=== PATIENT | male | born 1965 | race Caucasian/White ===

== ENCOUNTER → 2017-12-27 09:44 | Outpatient (CLI) | payer OTHER, SELFPAY ==
[2017-12-27 09:59] LABS: Add Manual Diff / Slide Review NO; Basophils Percent Auto 1.4 % (0-2); Eosinophils Percent Auto 2.5 % (2-4); Hematocrit 42.3 % (41-53); Hemoglobin 14.9 g/dL (13.5-17.5); Lymphocytes Percent Auto 24.9 % (25-40); Mean Corpuscular HGB Conc 35.1 % (30-36); Mean Corpuscular Hemoglobin 36.5 PG (26-34); Mean Corpuscular Volume 103.9 fL (80-100); Neutrophils Absolute Auto 1500 /uL (3000-5900); Neutrophils Percent Auto 57.2 % (50-75); Platelet Count 132 X10^3/uL (150-400); Red Blood Cell Count 4.07 X10^6/uL (4.5-5.9); Red Cell Distribution Width 13.6 % (11.6-14.8); White Blood Cell Count 2.6 X10^3/uL (4.5-11.0)
[2017-12-27 10:13] LABS: Alanine Aminotransferase 34 IU/L (21-72); Albumin 4.5 g/dL (3.5-5.0); Albumin Globulin Ratio 1.6 (1.0-2.8); Alkaline Phosphatase 76 U/L (38-126); Aspartate Aminotransferase 26 IU/L (17-59); BUN Creatinine Ratio 22.5 (6-22); Bilirubin Total 0.7 mg/dL (0.2-1.3); Calcium 9.4 mg/dL (8.4-10.2); Estimated Glomerular Filt Rate > 60.0 mL/min (>60); Globulin 2.8 g/dL (1.7-4.1); Glucose 93 mg/dL (70-100); HEMOLYSIS 16 (0-50); Potassium 4.6 mmol/L (3.4-5.1); Sodium 139 mmol/L (137-145); Total Protein 7.3 g/dL (6.3-8.2)
== END ==
PROVIDERS: PCP Family Medicine; Visit Provider Nurse Practitioner Gerontology
DX: C90.00 Multiple myeloma not having achieved remission (principal)
CPT/HCPCS: 36415; 80053; 85025

== ENCOUNTER → 2018-01-29 09:39 | Outpatient (CLI) | payer OTHER, SELFPAY ==
[2018-01-29 10:08] LABS: Add Manual Diff / Slide Review NO; Basophils Percent Auto 1.2 % (0-2); Eosinophils Percent Auto 3.4 % (2-4); Hematocrit 41.3 % (41-53); Hemoglobin 14.7 g/dL (13.5-17.5); Lymphocytes Percent Auto 29.9 % (25-40); Mean Corpuscular HGB Conc 35.6 % (30-36); Mean Corpuscular Hemoglobin 36.8 PG (26-34); Mean Corpuscular Volume 103.2 fL (80-100); Monocytes Percent Auto 10.1 % (3-14); Neutrophils Absolute Auto 1300 /uL (3000-5900); Neutrophils Percent Auto 55.4 % (50-75); Platelet Count 124 X10^3/uL (150-400); Red Cell Distribution Width 12.8 % (11.6-14.8); White Blood Cell Count 2.4 X10^3/uL (4.5-11.0)
[2018-01-29 10:19] LABS: Alanine Aminotransferase 37 IU/L (21-72); Albumin 4.4 g/dL (3.5-5.0); Albumin Globulin Ratio 1.5 (1.0-2.8); Alkaline Phosphatase 59 U/L (38-126); Aspartate Aminotransferase 27 IU/L (17-59); BUN Creatinine Ratio 23.3 (6-22); Bilirubin Total 1.1 mg/dL (0.2-1.3); Blood Urea Nitrogen 21 mg/dL (9-20); Carbon Dioxide 27 mmol/L (22-32); Chloride 102 mmol/L (98-107); Estimated Glomerular Filt Rate > 60.0 mL/min (>60); Globulin 2.9 g/dL (1.7-4.1); Glucose 82 mg/dL (70-100); HEMOLYSIS < 15 (0-50); Potassium 4.4 mmol/L (3.4-5.1); Sodium 139 mmol/L (137-145); Total Protein 7.3 g/dL (6.3-8.2)
== END ==
PROVIDERS: PCP Family Medicine; Visit Provider Nurse Practitioner Gerontology
DX: C90.00 Multiple myeloma not having achieved remission (principal)
CPT/HCPCS: 36415; 80053; 85025

== ENCOUNTER → 2018-02-14 10:12 | Outpatient (CLI) | payer OTHER, SELFPAY ==
[2018-02-14 10:43] LABS: Hematocrit 41.4 % (41-53); Hemoglobin 14.5 g/dL (13.5-17.5); Mean Corpuscular Hemoglobin 36.3 PG (26-34); Mean Corpuscular Volume 103.9 fL (80-100); Platelet Count 114 X10^3/uL (150-400); Red Blood Cell Count 3.98 X10^6/uL (4.5-5.9); Red Cell Distribution Width 12.6 % (11.6-14.8)
[2018-02-14 10:50] LABS: Alanine Aminotransferase 33 IU/L (21-72); Albumin 4.2 g/dL (3.5-5.0); Albumin Globulin Ratio 1.4 (1.0-2.8); Alkaline Phosphatase 50 U/L (38-126); Aspartate Aminotransferase 26 IU/L (17-59); BUN Creatinine Ratio 16.7 (6-22); Bilirubin Total 0.7 mg/dL (0.2-1.3); Blood Urea Nitrogen 15 mg/dL (9-20); Calcium 8.8 mg/dL (8.4-10.2); Carbon Dioxide 22 mmol/L (22-32); Chloride 107 mmol/L (98-107); Estimated Glomerular Filt Rate > 60.0 mL/min (>60); Globulin 2.9 g/dL (1.7-4.1); Glucose 88 mg/dL (70-100); HEMOLYSIS < 15 (0-50); Potassium 4.2 mmol/L (3.4-5.1); Sodium 142 mmol/L (137-145); Total Protein 7.1 g/dL (6.3-8.2); White Blood Cell Count 1.9 X10^3/uL (4.5-11.0)
[2018-02-14 10:51] LABS: Add Manual Diff / Slide Review YES
[2018-02-14 11:19] LABS: Neutrophils Absolute Manual 874 /uL (3000-5900); Total Cells Counted 50
[2018-02-14 11:20] LABS: Macrocytosis 1+
--- NOTE | 2018-02-14 17:03 | PC.NURSE ---
WBC 1.9 ANC 800's.Pt ended revlamid cycle on Sunday and is due to restart next Sunday.Is going out of town for 2 weeks on Sunday.Tatianna aware and will review and detemine plan for pt .Told him we would call today or tomm.Reviewed neutropenic precautions
--- NOTE | 2018-02-15 12:00 | PC.NURSE ---
Addendum entered by Prabha Cano R.N. 03/01/18 12:00: Pt called today to report that he is back from [place], sooner than expected and states that he has an appt with Tatianna on 03/11 with labs and to discuss restarting Revlimid. His Revlimid has been on hold due to neutropenia. Note placed in Tatianna's box asking if we can check labs earlier and possibly restart Revlimid if he is no longer neutropenic. Awaiting return response. Original Note: Spoke with Ranjit regarding his ANC 874. Tatianna reviewed the results and would like pt to hold his Revlimid until he returns from vacation. Upon return from [facility], she would like him to return for a cbc. He is unsure of the exact date of his return; states he is going there to look for an apartment so as soon as that happens, he'll be heading back this way. He states he will call and make that lab appt right when he gets back. We discussed neutropenic precautions including good hand washing and avoiding large crowds and sick people.
[2018-02-15 18:12] LABS: Free Kappa Light Chain 10.1 mg/L (3.3-19.4); Free Kappa/ Lambda Ratio 1.65 (0.26-1.65); Free Lambda 6.1 mg/L (5.7-26.3)
[2018-02-18 15:54] LABS: Abnormal Protein Band 1 0.6 g/dL (NONE DETECTED); Albumin 4.1 g/dL (3.8-4.8); Alpha 1 Globulin 0.2 g/dL (0.2-0.3); Alpha 2 Globulin 0.5 g/dL (0.5-0.9); Beta 1 Globulin 0.4 g/dL (0.4-0.6); Protein, Total 6.5 g/dL (6.1-8.1)
== END ==
PROVIDERS: PCP Family Medicine; Visit Provider Nurse Practitioner Gerontology
DX: C90.00 Multiple myeloma not having achieved remission (principal)
CPT/HCPCS: 36415; 80053; 83883; 84155; 84165; 85025

== ENCOUNTER → 2018-03-07 14:58 | Outpatient (CLI) | payer OTHER, SELFPAY ==
[2018-03-07 15:12] LABS: Add Manual Diff / Slide Review NO; Basophils Percent Auto 0.6 % (0-2); Eosinophils Percent Auto 1.1 % (2-4); Hematocrit 42.3 % (41-53); Hemoglobin 14.9 g/dL (13.5-17.5); Mean Corpuscular HGB Conc 35.3 % (30-36); Mean Corpuscular Hemoglobin 36.6 PG (26-34); Mean Corpuscular Volume 103.7 fL (80-100); Monocytes Percent Auto 9.3 % (3-14); Neutrophils Absolute Auto 2300 /uL (3000-5900); Platelet Count 131 X10^3/uL (150-400); Red Blood Cell Count 4.08 X10^6/uL (4.5-5.9); Red Cell Distribution Width 12.7 % (11.6-14.8); White Blood Cell Count 3.3 X10^3/uL (4.5-11.0)
--- NOTE | 2018-03-07 15:35 | PC.NURSE ---
This is a Pt on revilimid with cycle ending aroung 02/14. Past notes show he was concerned about his lab values and a planned a trip out of town. On 02/14 his WBC's showed 1.9 ANC 874. He was advised at that time to initiate neutropenic precautions. He is here today for follow up labs with a WBC of 3.3 ANC 2300 and a stable H/H. He is currently scheduled to see TRACKWALKER on 03/11 for f/u and review of current labs.
== END ==
PROVIDERS: PCP Family Medicine; Visit Provider Nurse Practitioner Gerontology
DX: C90.00 Multiple myeloma not having achieved remission (principal)
CPT/HCPCS: 36415; 85025

== ENCOUNTER → 2018-04-01 15:18 | Outpatient (CLI) | payer OTHER, SELFPAY ==
[2018-04-01 15:42] LABS: Add Manual Diff / Slide Review NO; Basophils Percent Auto 0.8 % (0-2); Eosinophils Percent Auto 0.8 % (2-4); Hematocrit 39.1 % (41-53); Hemoglobin 13.9 g/dL (13.5-17.5); Lymphocytes Percent Auto 19.4 % (25-40); Mean Corpuscular HGB Conc 35.5 % (30-36); Mean Corpuscular Volume 104.1 fL (80-100); Monocytes Percent Auto 10.4 % (3-14); Neutrophils Absolute Auto 2500 /uL (3000-5900); Neutrophils Percent Auto 68.6 % (50-75); Platelet Count 122 X10^3/uL (150-400); Red Blood Cell Count 3.75 X10^6/uL (4.5-5.9); Red Cell Distribution Width 12.6 % (11.6-14.8); White Blood Cell Count 3.6 X10^3/uL (4.5-11.0)
[2018-04-01 15:45] LABS: Alanine Aminotransferase 35 IU/L (21-72); Albumin 4.3 g/dL (3.5-5.0); Albumin Globulin Ratio 1.7 (1.0-2.8); Alkaline Phosphatase 65 U/L (38-126); Aspartate Aminotransferase 39 IU/L (17-59); Bilirubin Total 0.7 mg/dL (0.2-1.3); Blood Urea Nitrogen 20 mg/dL (9-20); Calcium 9.4 mg/dL (8.4-10.2); Carbon Dioxide 26 mmol/L (22-32); Chloride 104 mmol/L (98-107); Estimated Glomerular Filt Rate > 60.0 mL/min (>60); Globulin 2.6 g/dL (1.7-4.1); Glucose 110 mg/dL (70-100); HEMOLYSIS < 15 (0-50); Sodium 139 mmol/L (137-145); Total Protein 6.9 g/dL (6.3-8.2)
== END ==
PROVIDERS: PCP Family Medicine; Visit Provider Nurse Practitioner Gerontology
DX: C90.00 Multiple myeloma not having achieved remission (principal)
CPT/HCPCS: 36415; 80053; 85025

== ENCOUNTER → 2018-04-30 15:42 | Outpatient (CLI) | payer OTHER, SELFPAY ==
[2018-04-30 16:04] LABS: Add Manual Diff / Slide Review NO; Basophils Percent Auto 1.2 % (0-2); Eosinophils Percent Auto 2.9 % (2-4); Hematocrit 40.7 % (41-53); Hemoglobin 14.3 g/dL (13.5-17.5); Lymphocytes Percent Auto 21.6 % (25-40); Mean Corpuscular HGB Conc 35.1 % (30-36); Mean Corpuscular Hemoglobin 36.7 PG (26-34); Mean Corpuscular Volume 104.6 fL (80-100); Monocytes Percent Auto 14.2 % (3-14); Neutrophils Absolute Auto 2300 /uL (3000-5900); Neutrophils Percent Auto 60.1 % (50-75); Platelet Count 140 X10^3/uL (150-400); Red Blood Cell Count 3.89 X10^6/uL (4.5-5.9); Red Cell Distribution Width 12.2 % (11.6-14.8); White Blood Cell Count 3.8 X10^3/uL (4.5-11.0)
[2018-04-30 16:16] LABS: Alanine Aminotransferase 34 IU/L (21-72); Albumin 4.3 g/dL (3.5-5.0); Albumin Globulin Ratio 1.5 (1.0-2.8); Alkaline Phosphatase 63 U/L (38-126); Aspartate Aminotransferase 30 IU/L (17-59); Bilirubin Total 0.8 mg/dL (0.2-1.3); Blood Urea Nitrogen 18 mg/dL (9-20); Calcium 9.2 mg/dL (8.4-10.2); Carbon Dioxide 25 mmol/L (22-32); Chloride 105 mmol/L (98-107); Estimated Glomerular Filt Rate > 60.0 mL/min (>60); Globulin 2.9 g/dL (1.7-4.1); Glucose 102 mg/dL (70-100); HEMOLYSIS < 15 (0-50); Potassium 4.1 mmol/L (3.4-5.1); Sodium 139 mmol/L (137-145); Total Protein 7.2 g/dL (6.3-8.2)
== END ==
PROVIDERS: PCP Family Medicine; Visit Provider Nurse Practitioner Gerontology
DX: C90.00 Multiple myeloma not having achieved remission (principal)
CPT/HCPCS: 36415; 80053; 85025

== ENCOUNTER 2018-06-13 10:30 | Oncology outpatient (ONC) | payer OTHER, SELFPAY ==
[2018-03-11 11:23] VITALS: BP 128/78; PULSE 69; RESP 18; O2SAT 98
--- NOTE | 2018-03-11 11:58 | P.PNONC_ITS ---
Assessment and Plan (1) Multiple myeloma Current visit: No Status: Acute 03/11/18 12:07 The patient is a 53 year old Male who is being seen in the clinic 03/11/2018 for ongoing management of multiple myeloma more than 6 years after autologous stem cell transplant. he was also treated previously for hairy cell leukemia. Ranjit has been on revilimid for the last few years and reports he has been very stable. As detailed above Revlimid was held due to white count of 1.9 neutrophils 874. Labs today are improved with a CBC demonstrating WBC 3.3 ANC 2300. Hemoglobin 14.9 hematocrit 42.3 platelets [id number]. February 14, 2018 SPEP and free light chains all within normal limits. CMP unremarkable. Resume Revlimid at 5 mg once daily days 1 through 21 of a 28 day cycle. Continue monthly CBC and CMP. Every three-month provider visit with CBC CMP free light chains SPEP. His next visit I would like for him to establish with 1 of the new oncologist. - Time Spent with Patient 30 mins PN -Subjective Interval history: The patient is a 53 year old Male who is being seen in the clinic 03/11/2018 for ongoing management of multiple myeloma more than 6 years after autologous stem cell transplant. he was also treated previously for hairy cell leukemia. Ranjit has been on revilimid for the last few years and reports he has been very stable. Please see Dr La extensive and detailed note 09/03/2017. Ranjit has been followed at [facility] for the last several years now due to change in insurance has transferred care to [facility]. Most recently Ranjit had low WBC we subsequently held his Revlimid. Specifically February 14, 2018 WBC 1.9 with manual neutrophils 874. Thus Revlimid has been on hold since February 14. Patient has no new complaints today. Overall feeling very well, exercising regularly on his bike. No cough, fever, chills. No recent illnesses or infections. No change with activity tolerance. No night sweats. No change with appetite, weight is stable. No abdominal bloating. No early satiety. No new lumps or bumps. No new musculoskeletal pain. No change with bowel or bladder habits. PMH: This is a 55-year-old man who provides the following history. He states that he had colitis for approximately 4 years that at age 42 [address] Muhammad and Veda who then sent him to Dr. Oliver in [place], GI specialist, who did blood tests and found him to be severely anemic. Patient was surprised because he was quite physically active that time. He went to see Dr. 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 Patient states that he had 90% malignant cells in his bone marrow but is not sure about how that related to the 2 malignancies except that was but is being most important to treat hairy cell leukemia. He was treated with 5 days of cladribine and appeared cured by June 2007. He states that myeloma was discussed diagnosed in 2007 was watched for approximately a year; then he was treated with cyclophosphamide and bortezomib and dexamethasone and the M spike was brought down to 1.5 from a higher value (that value he is not sure of). He underwent autologous stem cell transplant after high-dose treatment and since then he has been in a very good partial remission with a low M spike in the 0.2- 0.4 range[address] Dr. Homero Almonte at [facility] but the patient's insurance, [employer], now requires sthat he see another oncologist who is within the network. In addition the patient lives in [place] and prefers to be seen here. I did inform them that there was oncology program in [place] in [facility] as well. This is the same group that Dr. Garcia was a member. Dr. Almonte provides following history. He was previously treated with a 5 day single cycle of cladribine therapy completed in July 2008 and has not had recurrence of hairy cell leukemia. He was diagnosed with multiple myeloma ISS stage I the time of diagnosis. He was treated with high-dose melphalan conditioning and autologous stem cell transplant 05/10/2011. He has been on maintenance lenalidomide; 3 on 10 mg for 21 days out of 28 days but due to low white cells he has been on 5 mg. Having his CBC checked every month. According to Dr. Almonte, his M spike was stable at 0.3 g or deciliter for just under a year and for the past 9 months has been 0.4 g/dL. He has been considered stable and appropriate for follow-up without changing maintenance therapy. Patient had been on Zometa as well but had been on this for approximately 5 years and is considered appropriate to stop therapy on the last visit in July 2017. The patient has never had hypercalcemia and renal failure or bone pain but has had anemia. Included in the packet for the following laboratory tests and imaging: MRI bone marrow 20-7 per 2010 showing small hemangioma and S1 vertebral body but resolution of many discrete lesions seen previously with high STIR and low T1 signal. CT abdomen 04/27/2012 showing no recurrence of leukemia or myeloma hypodense lesion in segment 2 of the liver increased from 513 mm but no enhancement, borderline splenomegaly, 2 indeterminate new lung nodules benign in appearance. You DEXA axial skeleton 12/13/2012 showing no significant osteopenia or osteoporosis with an increase in BMD over the past 3 years. Osseous survey 08/09/2017 showing no focal bony lesions Bone marrow examination, 05/17/2012 slightly hypocellular but no evidence of B- cell lymphoma. Bone marrow aspirate 05/17/2012 showing a very small abnormal plasma cell population Bone marrow cytogenetics normal, 05/17/2012 Laboratory values,, see below. Home Medications and Allergies Home Medications Medication Instructions Recorded Confirmed Type cholestyramine (with sugar) 4 gm PO #0 08/11/17 History lisinopril 20 mg PO QDAY #0 08/11/17 History VITAMIN D (Vitamin D3) 1,000 unit PO QDAY #0 09/03/17 History lenalidomide [Revlimid] 5 mg PO QDAY #21 cap 09/03/17 Rx Allergies Allergy/AdvReac Type Severity Reaction Status Date / Time ciprofloxacin [CIPROFLOXACIN] Allergy Unknown Unverified 12/05/17 11:56 diphenhydramine Allergy Unknown Unverified 12/05/17 11:56 [From BENADRYL] fluconazole [FLUCONAZOLE] Allergy Unknown Unverified 12/05/17 11:56 Sulfa (Sulfonamide Allergy Unknown Unverified 12/05/17 11:56 Antibiotics) [SULFA (SULFONAMIDE ANTIBIOTICS)] ceftriaxone [CEFTRIAXONE] AdvReac Unknown Unverified 12/05/17 11:56 promethazine [PROMETHAZINE] AdvReac Unknown Unverified 12/05/17 11:56 Exam Vital signs: Last Vital Signs Pulse 69 03/11/18 11:23 Resp 18 03/11/18 11:23 BP 128/78 H 03/11/18 11:23 Pulse Ox 98 07/16/18 11:23 Narrative: well appearing - Constitutional positive no acute distress, positive average body habitus - Routine HEENT Exam Eye: Present: conjunctivae pink. Absent: conjunctival icterus, scleral injection ENT: Present: mucous membranes moist, oropharynx clear - Routine Neck Exam Present: supple. Absent: lymphadenopathy - Routine Respiratory Exam Present: Clear to auscultation bilaterally - Routine Cardiovascular Exam Present: RRR, S1, S2. Absent: JVD - Routine Abdominal Exam Present: soft, normoactive bowel sounds. Absent: tenderness, distended, organomegaly - Routine Extremities Exam Absent: edema, calf tenderness - Routine Skin Exam Present: intact, normal turgor. Absent: petechiae - Routine Neurological Exam Present: alert, oriented X3 - Routine Psychiatric Exam Present: normal affect
[2018-06-05 15:44] LABS: Add Manual Diff / Slide Review NO; Basophils Percent Auto 0.9 % (0-2); Eosinophils Percent Auto 2.5 % (2-4); Hemoglobin 14.4 g/dL (13.5-17.5); Lymphocytes Percent Auto 30.3 % (25-40); Mean Corpuscular HGB Conc 34.4 % (30-36); Mean Corpuscular Hemoglobin 35.9 PG (26-34); Mean Corpuscular Volume 104.2 fL (80-100); Monocytes Percent Auto 11.7 % (3-14); Neutrophils Absolute Auto 1400 /uL (3000-5900); Neutrophils Percent Auto 54.6 % (50-75); Platelet Count 121 X10^3/uL (150-400); Red Blood Cell Count 4.03 X10^6/uL (4.5-5.9); Red Cell Distribution Width 12.4 % (11.6-14.8); White Blood Cell Count 2.6 X10^3/uL (4.5-11.0)
[2018-06-05 16:53] LABS: Alanine Aminotransferase 36 IU/L (21-72); Albumin 4.3 g/dL (3.5-5.0); Albumin Globulin Ratio 1.4 (1.0-2.8); Alkaline Phosphatase 55 U/L (38-126); Aspartate Aminotransferase 29 IU/L (17-59); BUN Creatinine Ratio 22.5 (6-22); Bilirubin Total 0.9 mg/dL (0.2-1.3); Blood Urea Nitrogen 18 mg/dL (9-20); Carbon Dioxide 24 mmol/L (22-32); Chloride 105 mmol/L (98-107); Estimated Glomerular Filt Rate > 60.0 mL/min (>60); Globulin 3.1 g/dL (1.7-4.1); Glucose 89 mg/dL (70-100); HEMOLYSIS < 15 (0-50); Potassium 3.9 mmol/L (3.4-5.1); Sodium 139 mmol/L (137-145); Total Protein 7.4 g/dL (6.3-8.2)
[2018-06-07 15:03] LABS: Free Kappa Light Chain 13.1 mg/L (3.3-19.4); Free Lambda 8.2 mg/L (5.7-26.3)
[2018-06-08 15:52] LABS: Abnormal Protein Band 1 0.6 g/dL (NONE DETECTED); Albumin 4.2 g/dL (3.8-4.8); Alpha 1 Globulin 0.3 g/dL (0.2-0.3); Alpha 2 Globulin 0.5 g/dL (0.5-0.9); Beta 1 Globulin 0.4 g/dL (0.4-0.6); Gamma Globulin 1.2 g/dL (0.8-1.7); Protein, Total 6.9 g/dL (6.1-8.1)
[2018-06-13 10:50] VITALS: BP 139/90; PULSE 55; RESP 18; TEMP 36.2; O2SAT 100
--- NOTE | 2018-06-13 11:01 | P.PNONC_ITS ---
PN -Subjective Interval history: Chief complaint 53-year-old gentleman with IgG kappa multiple myeloma and hairy cell leukemia Oncological history He states that he had colitis for approximately 4 years that at age 42 [address] Muhammad and Veda who then sent him to Dr. Oliver in [place], GI specialist, who did blood tests and found him to be severely anemic. Patient was surprised because he was quite physically active that time. He went to see Dr. 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 Patient states that he had 90% malignant cells in his bone marrow but is not sure about how that related to the 2 malignancies except that was but is being most important to treat hairy cell leukemia. He was treated with 5 days of cladribine and appeared cured by June 2007. He states that myeloma was discussed diagnosed in 2007 was watched for approximately a year; then he was treated with cyclophosphamide and bortezomib and dexamethasone and the M spike was brought down to 1.5 from a higher value (that value he is not sure of). He underwent autologous stem cell transplant after high-dose treatment and since then he has been in a very good partial remission with a low M spike in the 0.2- 0.[address]. [address] Dr. Homero Almonte at [facility] but the patient's insurance, [employer], now requires sthat he see another oncologist who is within the network. In addition the patient lives in [place] and prefers to be seen here. I did inform them that there was oncology program in [place] in [facility] as well. This is the same group that Dr. Garcia was a member. Dr. Almonte provides following history. He was previously treated with a 5 day single cycle of cladribine therapy completed in July 2008 and has not had recurrence of hairy cell leukemia. He was diagnosed with multiple myeloma ISS stage I the time of diagnosis. He was treated with high-dose melphalan conditioning and autologous stem cell transplant 05/10/2011. He has been on maintenance lenalidomide; 3 on 10 mg for 21 days out of 28 days but due to low white cells he has been on 5 mg. Having his CBC checked every month. According to Dr. Almonte, his M spike was stable at 0.3 g or deciliter for just under a year and for the past 9 months has been 0.4 g/dL. He has been considered stable and appropriate for follow-up without changing maintenance therapy. Patient had been on Zometa as well but had been on this for approximately 5 years and is considered appropriate to stop therapy on the last visit in July 2017. The patient has never had hypercalcemia and renal failure or bone pain but has had anemia. Included in the packet for the following laboratory tests and imaging: MRI bone marrow 20-7 per 2010 showing small hemangioma and S1 vertebral body but resolution of many discrete lesions seen previously with high STIR and low T1 signal. CT abdomen 04/27/2012 showing no recurrence of leukemia or myeloma hypodense lesion in segment 2 of the liver increased from 513 mm but no enhancement, borderline splenomegaly, 2 indeterminate new lung nodules benign in appearance. You DEXA axial skeleton 12/13/2012 showing no significant osteopenia or osteoporosis with an increase in BMD over the past 3 years. Osseous survey 08/09/2017 showing no focal bony lesions Bone marrow examination, 05/17/2012 slightly hypocellular but no evidence of B- cell lymphoma. Bone marrow aspirate 05/17/2012 showing a very small abnormal plasma cell population Bone marrow cytogenetics normal, 05/17/2012 Laboratory values,, see below. Interim events Patient clinically has reported no new complaints. Patient reports good energy good appetite. No musculoskeletal pain. No fever and no chills. Patient is taking Revlimid it faithfully 5 mg once a day 3 weeks on and 1 week off. - Additional ROS All systems PM: reviewed and no additional remarkable complaints except as stated Home Medications and Allergies Home Medications Medication Instructions Recorded Confirmed Type cholestyramine (with sugar) 4 gm PO BID #0 08/11/17 History lisinopril 20 mg PO QDAY #0 08/11/17 History VITAMIN D (Vitamin D3) 1,000 unit PO QDAY #0 09/03/17 History lenalidomide [Revlimid] 5 mg PO QDAY #21 cap 09/03/17 Rx Allergies Allergy/AdvReac Type Severity Reaction Status Date / Time ciprofloxacin [CIPROFLOXACIN] Allergy Unknown Unverified 12/05/17 11:56 diphenhydramine Allergy Unknown Unverified 12/05/17 11:56 [From BENADRYL] fluconazole [FLUCONAZOLE] Allergy Unknown Unverified 12/05/17 11:56 Sulfa (Sulfonamide Allergy Unknown Unverified 12/05/17 11:56 Antibiotics) [SULFA (SULFONAMIDE ANTIBIOTICS)] ceftriaxone [CEFTRIAXONE] AdvReac Unknown Unverified 12/05/17 11:56 promethazine [PROMETHAZINE] AdvReac Unknown Unverified 12/05/17 11:56 Exam Vital signs: 3 Temp 97.2 F L 06/13/18 10:50 Pulse 55 L 06/13/18 10:50 Resp 18 06/13/18 10:50 BP 139/90 06/13/18 10:50 Pulse Ox 100 06/13/18 10:50 ECOG 1 Narrative: Constitutional: Well developed, well nourished, not in any acute respiratory distress, average body habitus, well groomed, pleasant and cooperative. HEENT: Normocephalic atraumatic. Extraocular muscle movement intact. Pupils are round, equal and reactive to light and accommodations. Anicteric sclera. No hearing difficulty; Oral mucus membrane moist and without ulcers. Neck: Supple, symmetrical, and tracheal midline; No palpable thyromegaly and no palpable lymph nodes. Respiratory: No use of accessory muscles. Clear to auscultation, and no wheezes or rales or rubs. Cardiovascular: Regular rate and rhythm, S1 and S2 normal, no murmurs gallops or rubs. No JVD. No pitting edema of lower extremities. Abdomen: Soft, nontender, non-distended, bowel sounds normal, no palpable organomegaly, no hernia, no palpable masses. Lower extremities: No palpable pedal edema. Lymphatic: no palpable lymph nodes in the neck, axillae, or groins. Musculoskeletal: normal gait and station, no clubbing, no cyanosis, no pitting edema. Skin: no rashes, no ulcers, no petechiae Neurological: Awake and alert and oriented x3. CN II-XII grossly intact. No focal motor or sensory deficit. Psychiatric: Good judgment, good insight, normal affect, normal thought process , cooperative, no depression, no anxiety. Results - Labs 3 WBC 2.6 X10^3/uL (4.5-11.0) L 06/05/18 15:00 RBC 4.03 X10^6/uL (4.5-5.9) L 06/05/18 15:00 Hgb 14.4 g/dL (13.5-17.5) 06/05/18 15:00 Hct 42.0 % (41-53) 06/05/18 15:00 MCV 104.2 fL (80-100) H 06/05/18 15:00 MCH 35.9 PG (26-34) H 06/05/18 15:00 MCHC 34.4 % (30-36) 06/05/18 15:00 RDW 12.4 % (11.6-14.8) 06/05/18 15:00 Plt Count 121 X10^3/uL (150-400) L 06/05/18 15:00 Neut % (Auto) 54.6 % (50-75) 06/05/18 15:00 Lymph % (Auto) 30.3 % (25-40) 06/05/18 15:00 Nolan % (Auto) 11.7 % (3-14) 06/05/18 15:00 Eos % (Auto) 2.5 % (2-4) 06/05/18 15:00 Baso % (Auto) 0.9 % (0-2) 06/05/18 15:00 Neut # (Auto) 1400 /uL (6742-0096) L 06/05/18 15:00 Sodium 139 mmol/L (137-145) 06/05/18 15:00 Potassium 3.9 mmol/L (3.4-5.1) 06/05/18 15:00 Chloride 105 mmol/L (98-107) 06/05/18 15:00 Carbon Dioxide 24 mmol/L (22-32) 06/05/18 15:00 BUN 18 mg/dL (9-20) 06/05/18 15:00 Creatinine 0.80 mg/dL (0.66-1.25) 06/05/18 15:00 Estimated GFR > 60.0 mL/min (>60) 06/05/18 15:00 BUN/Creatinine Ratio 22.5 (6-22) H 06/05/18 15:00 Glucose 89 mg/dL (70-100) 06/05/18 15:00 Calcium 9.0 mg/dL (8.4-10.2) 06/05/18 15:00 Total Bilirubin 0.9 mg/dL (0.2-1.3) 06/05/18 15:00 AST 29 IU/L (17-59) 06/05/18 15:00 ALT 36 IU/L (21-72) 06/05/18 15:00 Alkaline Phosphatase 55 U/L (38-126) 06/05/18 15:00 Serum Total Protein 6.9 g/dL (6.1-8.1) 06/05/18 15:00 Total Protein 7.4 g/dL (6.3-8.2) 06/05/18 15:00 Albumin 4.2 g/dL (3.8-4.8) 06/05/18 15:00 Globulin 3.1 g/dL (1.7-4.1) 06/05/18 15:00 Albumin/Globulin Ratio 1.4 (1.0-2.8) 06/05/18 15:00 Tzrvv-3-Dwbqgtubu 0.3 g/dL (0.2-0.3) 06/05/18 15:00 Qbbtu-7-Wdyvucqfj 0.5 g/dL (0.5-0.9) 06/05/18 15:00 Dygj-8-Nigbabli 0.4 g/dL (0.4-0.6) 06/05/18 15:00 Caiu-4-Uzvajgon 0.3 g/dL (0.2-0.5) 06/05/18 15:00 Gamma Globulins 1.2 g/dL (0.8-1.7) 06/05/18 15:00 Abnorm Protein Band 1 0.6 g/dL (NONE DETECTED) A 06/05/18 15:00 Abnorm Protein Band 2 Not Reportable 06/05/18 15:00 Abn Gamma Band 3 Serum Not Reportable 06/05/18 15:00 PEP Comment See note 06/05/18 15:00 SANDRA & SPEP Interp See note 06/05/18 15:00 Free [place] Light Chains 13.1 mg/L (3.3-19.4) 06/05/18 15:00 Free Lambda Light Chain 8.2 mg/L (5.7-26.3) 06/05/18 15:00 Free [place]/Lambda Ratio 1.60 (0.26-1.65) 06/05/18 15:00 Assessment and Plan (1) Multiple myeloma Onset Date: 2006 I reviewed the laboratory results with the patient including CBC, CMP and multiple myeloma panel. Patient has a slightly lower level of total white cell count that may be related to the use of the Revlimid. The ANC level is above 1.0. The patient clinically has tolerated the current treatment extremely well. He denies any new onset musculoskeletal pain. Patient has protein electrophoresis showed a abnormal protein band in the gamma region 0.6 in concentration. The immunofixation confirmed the presence of a faint IgG kappa band. The serum free light chains are completely normal and the ratio is also within the normal range. Compared to his previous lab results, the multiple myeloma markers are completely stable. I talked with the patient that I will continue current treatment without any changes. Today patient also asked about if it is okay to get a shingles vaccine, I talked with him that the new shingles vaccine are not live virus, and it would be fine for him to get the vaccines. Plan: Revlimid 5 mg once a day, 3 weeks on and 1 week off. Continue monthly lab checks including CBC and CMP. Return to clinic in 3 months, we will check CBC CMP and multiple myeloma panel. (2) Hairy cell leukemia Onset Date: 2006 Patient underwent treatment with Cladrabine in 2006. The slightly lower white blood cell count has been stable which most likely is due to Revlimid. I will continue active surveillance.
== END 2018-06-14 12:00 ==
PROVIDERS: PCP Family Medicine; Visit Provider Nurse Practitioner Gerontology
DX: C90.00 Multiple myeloma not having achieved remission (principal); C91.41 Hairy cell leukemia, in remission
CPT/HCPCS: 36415; 80053; 83883; 84155; 84165; 85025; 99214

== ENCOUNTER → 2021-08-01 14:11 | Outpatient (CLI) | payer OTHER, SELFPAY ==
[2021-08-01 14:39] LABS: Add Manual Diff / Slide Review NO; Basophils Absolute Auto 0 /uL (0-100); Eosinophils Absolute Auto 100 /uL (0-450); Eosinophils Percent Auto 2.4 % (2-4); Hemoglobin 13.6 g/dL (13.5-17.5); Lymphocytes Absolute Auto 600 /uL (1100-4500); Lymphocytes Percent Auto 26.6 % (25-40); Mean Corpuscular HGB Conc 34.9 % (30-36); Mean Corpuscular Hemoglobin 35.4 PG (26-34); Mean Corpuscular Volume 101.4 fL (80-100); Monocytes Absolute Auto 300 /uL (0-900); Neutrophils Absolute Auto 1300 /uL (1500-7000); Platelet Count 133 X10^3/uL (150-400); Red Blood Cell Count 3.84 X10^6/uL (4.5-5.9); Red Cell Distribution Width 12.4 % (11.6-14.8); White Blood Cell Count 2.2 X10^3/uL (4.5-11.0)
[2021-08-01 14:55] LABS: Alanine Aminotransferase 32 IU/L (<50); Albumin 4.4 g/dL (3.5-5.0); Albumin Globulin Ratio 1.5 (1.0-2.8); Alkaline Phosphatase 73 U/L (38-126); Aspartate Aminotransferase 30 IU/L (17-59); BUN Creatinine Ratio 18.8 (6-22); Bilirubin Total 0.8 mg/dL (0.2-1.3); Blood Urea Nitrogen 19 mg/dL (9-20); Calcium 9.5 mg/dL (8.4-10.2); Carbon Dioxide 27 mmol/L (22-32); Chloride 103 mmol/L (98-107); Estimated Glomerular Filt Rate > 60.0 mL/min (>60); Glucose 90 mg/dL (70-100); HEMOLYSIS < 15 (0-50); Lactate Dehydrogenase 421 U/L (313-618); Potassium 4.3 mmol/L (3.4-5.1); Sodium 138 mmol/L (137-145); Total Protein 7.4 g/dL (6.3-8.2)
[2021-08-02 15:43] LABS: Free Lambda Lt Chains,Serum 19.3 mg/L (5.7-26.3)
[2021-08-03 04:26] LABS: Beta-2-Microglobulin 1.2 mg/L (0.6-2.4)
[2021-08-03 14:13] LABS: Immunoglobulin A, Serum 205 mg/dL (90-386); Immunoglobulin G,Serum 1296 mg/dL (603-1613); Immunoglobulin M, Serum 48 mg/dL (20-172)
[2021-08-03 15:36] LABS: Alpha-1-Globulin 0.2 g/dL (0.0-0.4); Alpha-2-Globulin 0.6 g/dL (0.4-1.0); Gamma Globulin 1.4 g/dL (0.4-1.8); Globulin Total 3.1 g/dL (2.2-3.9); Protein, Total 7.1 g/dL (6.0-8.5)
== END ==
PROVIDERS: PCP Family Medicine; Referring Provider Internal Medicine Hematology & Oncology; Visit Provider Internal Medicine Hematology & Oncology
DX: C90.00 Multiple myeloma not having achieved remission (principal); C91.40 Hairy cell leukemia not having achieved remission
CPT/HCPCS: 36415; 80053; 82232; 82784; 83615; 83883; 84155; 84165; 85025; 86334

== ENCOUNTER 2022-12-28 09:09 | Day surgery (SDC) | payer OTHER, SELFPAY ==
[2022-12-28 09:47] VITALS: BP 147/86; PULSE 61; RESP 17; TEMP 36.2; O2SAT 98; BMI 27.1
--- NOTE | 2022-12-28 09:56 | PM.HP.1 ---
History of Present Illness History of Present Illness Date Patient Seen: 12/28/22 Time Patient Seen: 09:56 Chief complaint: SDC Narrative: Ranjit is a 49-year-old man who is here for colonoscopy. His last 1 was over 10 years ago in some polyps were removed. Underwent treatment for leukemia and myeloma since that time. He is now in remission. Meds Home Medications and Allergies Home Medications Medication Instructions Recorded Confirmed Type cholestyramine (with sugar) 4 gram 4 gm PO DAILY ##0 08/11/17 12/28/22 History powder for susp in a packet lisinopril 20 mg tablet 20 mg PO QDAY ##0 08/11/17 12/28/22 History cholecalciferol (vitamin D3) 125 125 mcg PO DAILY ##0 09/03/17 12/28/22 History mcg (5,000 unit) tablet (Vitamin D3) ascorbic acid (vitamin C) 500 mg 500 mg PO DAILY 08/14/22 12/28/22 History tablet (Vitamin C) vitamin P55-dkewuodja factor 110 1 cap DAILY 08/14/22 12/28/22 History mg-0.5 mg capsule lenalidomide 5 mg capsule 5 mg PO DAILY #21 caps 11/27/22 12/28/22 Rx ibuprofen 200 mg tablet mg 12/28/22 History Allergies Allergy/AdvReac Type Severity Reaction Status Date / Time ciprofloxacin [CIPROFLOXACIN] Allergy Unknown Verified 12/28/22 09:41 diphenhydramine Allergy Unknown Verified 12/28/22 09:41 [From BENADRYL] fluconazole [FLUCONAZOLE] Allergy Unknown Verified 12/28/22 09:41 Sulfa (Sulfonamide Allergy Unknown Verified 12/28/22 09:41 Antibiotics) [SULFA (SULFONAMIDE ANTIBIOTICS)] ceftriaxone [CEFTRIAXONE] AdvReac Unknown Verified 12/28/22 09:41 promethazine [PROMETHAZINE] AdvReac Unknown Verified 12/28/22 09:41 Exam Const General: No acute distress Assessment & Plan Assessment and plan (1) Colon cancer screening: Status: Acute Plan We reviewed the risks and benefits of colonoscopy for colon cancer screening and he would like to proceed.
[2022-12-28] MEDS: LACTATED RINGERS 1,000 ML 120 ML IV (10:00)
--- NOTE | 2022-12-28 12:10 | P.OP.COLON_ITS ---
Operative Date/Time/Diagnoses Date of procedure: 12/28/22 Time of procedure: 12:10 Pre-op diagnosis: Colon cancer screening Post-op diagnosis: same Procedure & Clinicians Study performed: Colonoscopy Same procedure as scheduled: Yes Surgeon: Óscar Ferrell Procedure Notes Procedure in detail: Surgeon: Óscar Ferrell MD Anesthesia: Marce Prasad [employer] MANAGER Procedure: The patient was brought to the endoscopy suite, placed in left lateral decubitus position. The patient was connected to monitoring devices. A time-out was performed. Sedation was administered. Once the patient was adequately sedated, a digital rectal exam was performed and was normal. The scope was then inserted and advanced to the cecum where the appendiceal orifice was identified and photographed. The scope was then slowly withdrawn over greater than 6 minutes. The mucosa was thoroughly inspected. No polyps were found. The scope was retroflexed in the rectum. No other abnormalities were seen. The scope was straightened and removed. The patient was awakened and brought to recovery. Scope withdrawal time: 9 minutes Sedation time: 20 minutes EBL: 0 Findings: Normal colon Post-procedure Recommendations: Colonoscopy in 10 years Disposition: PACU
[2022-12-28 12:13] VITALS: BP 117/79; PULSE 68; RESP 12; TEMP 36.5; O2SAT 97
[2022-12-28 12:20] VITALS: BP 129/89; PULSE 61; RESP 14; TEMP 36.6; O2SAT 97
[2022-12-28 12:31] VITALS: BP 138/91; PULSE 60; RESP 16; TEMP 36.6; O2SAT 99
[2022-12-28 12:41] VITALS: BP 143/87; PULSE 60; RESP 18; TEMP 36.3; O2SAT 99
== END 2022-12-28 12:59 | disposition home or self-care (01) ==
PROVIDERS: PCP Family Medicine; Referring Provider Surgery; Visit Provider Surgery
PROC: 0DJD8ZZ Inspection of Lower Intestinal Tract, Via Natural or Artificial Opening Endoscopic (ICD-10-PCS; CPT 45378; principal; 2022-12-28 10:15)
DX: Z12.11 Encounter for screening for malignant neoplasm of colon (principal)
CPT/HCPCS: 45378; J2704

== ENCOUNTER → 2023-01-30 09:02 | Outpatient (ROUT) | payer OTHER, SELFPAY ==
[2023-01-30 09:23] LABS: Add Manual Diff / Slide Review NO; Basophils Absolute Auto 0 /uL (0-100); Basophils Percent Auto 0.8 % (0-2); Eosinophils Absolute Auto 100 /uL (0-450); Eosinophils Percent Auto 3.2 % (2-4); Hematocrit 40.1 % (41-53); Lymphocytes Absolute Auto 600 /uL (1100-4500); Lymphocytes Percent Auto 25.2 % (25-40); Mean Corpuscular HGB Conc 34.9 % (30-36); Mean Corpuscular Hemoglobin 35.1 PG (26-34); Mean Corpuscular Volume 100.5 fL (80-100); Monocytes Absolute Auto 400 /uL (0-900); Monocytes Percent Auto 14.6 % (3-14); Neutrophils Absolute Auto 1400 /uL (1500-7000); Neutrophils Percent Auto 56.2 % (50-75); Platelet Count 124 X10^3/uL (150-400); Red Blood Cell Count 3.99 X10^6/uL (4.5-5.9); Red Cell Distribution Width 12.6 % (11.6-14.8); White Blood Cell Count 2.5 X10^3/uL (4.5-11.0)
[2023-01-30 09:35] LABS: Alanine Aminotransferase 32 IU/L (<50); Albumin Globulin Ratio 1.3 (1.0-2.8); Alkaline Phosphatase 68 U/L (38-126); Aspartate Aminotransferase 27 IU/L (17-59); BUN Creatinine Ratio 23.3 (6-22); Bilirubin Total 0.9 mg/dL (0.2-1.3); Blood Urea Nitrogen 17 mg/dL (9-20); Calcium 8.7 mg/dL (8.4-10.2); Carbon Dioxide 26 mmol/L (22-32); Chloride 105 mmol/L (98-107); Estimated Glomerular Filt Rate > 60 mL/min (>60); Globulin 3.2 g/dL (1.7-4.1); Glucose 90 mg/dL (70-100); HEMOLYSIS < 15 (0-50); Lactate Dehydrogenase 158 U/L (120-246); Potassium 4.3 mmol/L (3.4-5.1); Sodium 135 mmol/L (137-145); Total Protein 7.2 g/dL (6.3-8.2)
[2023-01-31 19:14] LABS: Free Kappa Lt Chains, Serum 21.1 mg/L (3.3-19.4); Free Lambda Lt Chains,Serum 10.1 mg/L (5.7-26.3)
[2023-02-01 14:36] LABS: Beta-2-Microglobulin 1.3 mg/L (0.6-2.4)
== END ==
PROVIDERS: PCP Family Medicine; Visit Provider Internal Medicine Hematology & Oncology
DX: C90.00 Multiple myeloma not having achieved remission (principal); C91.40 Hairy cell leukemia not having achieved remission
CPT/HCPCS: 36415; 80053; 82232; 83615; 83883; 85025